=== PATIENT | female | born 1985 | race Caucasian/White ===

== ENCOUNTER 2017-01-14 04:59 | Inpatient (IN) | payer OTHER ==
[~2017-01-14] VITALS: Ht 157.5 cm; Wt 87.1 kg
[2017-01-14 05:15] VITALS: BP 115/67
--- NOTE | 2017-01-14 05:20 | NUR ---
To bed 3.
--- NOTE | 2017-01-14 05:25 | NUR ---
Patient being evaluated by physician at bedside.
[2017-01-14] MEDS ORDERED: NACL 0.9% 1,000 ML IV ONE (05:35)
[2017-01-14] MEDS ORDERED: ACETYLCYSTEINE 20% (200 MG/ML) 200 MG/ML VIAL PO ONE (05:45)
--- NOTE | 2017-01-14 05:45 | NUR ---
32Y/F PT. BIB MOTHER TO ED WITH POSSIBLE OVERDOSE. MOTHER STATES PT. TOLD HER SHE TOOK COUPLE OF FULL HAND OF ACETAMENOPHEN 500 MG. HX. ADHD, MENTAL DELAYED. AAO, AMBULATORY WITH STEADY GAIT. RESPIRATIONS ROOM AIR, EVEN AND UNLABORED. BL LUNGS CLEAR. SKIN ARM AND DRY. VSS, NO S/SX OF DISTRESS AT THIS TIME. ER MD MADE AWARE OF PT. STAUS.
[2017-01-14 05:58] LABS: BASOPHILS # (AUTO) 0.4 K/uL (0.00-0.22); BASOPHILS % (AUTO) 4.1 % (0.0-2.0); EOSINOPHILS # (AUTO) 0.6 K/uL (0-0.4); EOSINOPHILS % (AUTO) 5.9 % (0.0-4.0); HEMATOCRIT 40.5 % (36-48); HEMOGLOBIN 13.1 g/dL (12.0-16.0); LYMPHOCYTES # (AUTO) 3.9 K/uL (2.5-16.5); LYMPHOCYTES % (AUTO) 37.8 % (20.5-51.1); MEAN CORPUSCULAR HEMOGLOBIN 27 pg (27-31); MEAN CORPUSCULAR HGB CONC 32 g/dL (33-37); MEAN CORPUSCULAR VOLUME 82 fL (80-94); MONOCYTES # (AUTO) 0.4 K/uL (0.8-1.0); MONOCYTES % (AUTO) 3.4 % (1.7-9.3); NEUTROPHILS # (AUTO) 5.1 K/uL (1.8-7.7); NEUTROPHILS % (AUTO) 48.8 % (42.2-75.2); PLATELET COUNT (AUTO) 239 K/uL (140-450); RED BLOOD CELL COUNT(AUTO) 4.93 MIL/uL (4.20-5.40); RED CELL DISTRIBUTION WIDTH 13.8 % (11.6-13.7); WHITE BLOOD COUNT (AUTO) 10.4 K/uL (4.8-10.8)
--- NOTE | 2017-01-14 05:58 | NUR ---
[place] [employer] AT BEDSIDE TO EVALUATE PT
[2017-01-14 06:07] LABS: ANION GAP 17.6 (8-16); CARBON DIOXIDE 22.7 mmol/L (21-32); CHLORIDE 104 mmol/L (98-107); CREATININE 0.9 mg/dL (0.6-1.3); GFR ARICAN-AMERICAN 92 mL/min (>90); GLUCOSE 128 mg/dL (74-106); POTASSIUM 4.3 mmol/L (3.5-5.1); SODIUM SERUM 140 mmol/L (136-145); UREA NITROGEN, BLOOD 10 mg/dL (7-18)
--- NOTE | 2017-01-14 06:10 | NUR ---
PD PLACE PT. ON 4907 HOLD
[2017-01-14 06:21] LABS: ALBUMIN 3.4 g/dL (3.4-5.0); ASPARTATE AMINOTRANSFERASE 22 U/L (15-37); TOTAL BILIRUBIN 0.4 mg/dL (0.0-1.0)
[2017-01-14 06:22] LABS: SALICYLATE < 2.8 mg/dL (2.8-20.0)
[2017-01-14 06:24] LABS: ACETAMINOPHEN 233.5 ug/ml (10-30)
[2017-01-14] MEDS ORDERED: ONDANSETRON 4 MG/2 ML VIAL IVP PRN (06:40)
[2017-01-14] MEDS ORDERED: METF1000 PO (06:47)
[2017-01-14] MEDS ORDERED: SERT25TA PO (06:47)
[2017-01-14] MEDS ORDERED: CLON0.1T42 PO (06:47)
[2017-01-14] MEDS ORDERED: TRAZ-286 PO (06:47)
[2017-01-14] MEDS ORDERED: birth control (06:47)
[2017-01-14] MEDS ORDERED: BUPR-10 PO (06:47)
[2017-01-14] MEDS ORDERED: BRE5 PO (06:47)
[2017-01-14] MEDS ORDERED: MONT10TA35 PO (06:47)
[2017-01-14 06:49] LABS: APPEARANCE,URINE CLEAR (CLEAR); BILIRUBIN,URINE 1+ (NEGATIVE); BLOOD, URINE NEGATIVE (NEGATIVE); COLOR,URINE YELLOW (YELLOW); LEUKOCYTE ESTERASE ,URINE NEGATIVE (NEGATIVE); NITRITE, URINE NEGATIVE (NEGATIVE); UGLUCOSE NEGATIVE (NEGATIVE)
[2017-01-14 06:53] LABS: BARBITURATE, URINE NEG. ng/ml (NEG <=200); BENZODIAZEPINE, URINE POS. ng/mL (NEG <=200); CANNABINOID, URINE NEG. ng/mL (NEG <=50); COCAINE, URINE NEG. ng/mL (NEG <=300); OPIATE, URINE NEG. ng/mL (NEG <=2000); PHENCYCLIDINE SCREEN,URINE NEG. ng/mL (NEG <=25)
--- NOTE | 2017-01-14 07:06 | NUR ---
GIVE REPORT TO BREANA SORIA. PT. RESTING IN BED, MOTHER AT BEDSIDE.
[2017-01-14 07:08] LABS: PROTHROMBIN TIME 9.6 secs (10.8-13.4)
--- NOTE | 2017-01-14 07:08 | NUR ---
Patient appears to be resting comfortably in bed. Vital Signs within normal limits. Respirations even and unlabored. Mother of patient by bedside. Updated pt on plan of care. Pt verbalized understanding
[2017-01-14 07:14] LABS: RBC,URINE 0-5 (RARE) /HPF (0-5); WBC,URINE 0-5 (RARE) /HPF (0-5)
--- NOTE | 2017-01-14 07:22 | NUR ---
Attemped to call to give report. ASSOCIATE PROFESSOR OF ANTHROPOLOGY asked to call back in 10 mins. Will follow up.
--- NOTE | 2017-01-14 07:40 | NUR ---
Patient will be admitted to care of Mike BRAND. Admited to Tele (RM ICU 5 for overflow). Will go to room ICU #5. Belongings list completed. Report to Marika.
--- NOTE | 2017-01-14 07:40 | NUR ---
RECEIVED REPORT FROM BREANA IQBAL FROM ER. AWAITING ARRIVAL TO THE UNIT.
--- NOTE | 2017-01-14 07:50 | NUR ---
PT ARRIVED TO THE UNIT VIA GURNEY. NO S/SX OF DISTRESS AT THIS TIME. DENIES PAIN OR DISCOMFORT. PT ON ROOM AIR. ALERT AND ORIENT X4. PERIPHERAL IV ON RIGHT AC #20. SKIN INTACT. SAFETY PRECAUTION IN PLACE. BED IN LOWEST POSITION AND BOTH S/R UP. CALL LIGHT WITHIN REACH. PT SINUS RHYTHM ON THE MONITOR. ADMISSION ASSESSMENT COMPLETED AND MRSA SWAB OBTAINED. WILL CONTINUE TO MONITOR.
[2017-01-14 07:59] LABS: CHOL/HDL RATIO 4.4 (1-4.5); FREE T4 (FREE THYROXINE) 0.99 ng/dL (0.76-1.46); MAGNESIUM 1.9 mg/dL (1.8-2.4); PHOSPHORUS 4.4 mg/dL (2.5-4.9); THYROID STIMULATING HORMONE 3.5 uIU/mL (0.34-3.74)
[2017-01-14 08:00] VITALS: BP 110/74
--- NOTE | 2017-01-14 08:00 | NUR ---
ABG DRAWN ON LR WITHOUT INCIDENT ON ROOM AIR AND AT [address] MONREAL WITH NO CHANGES MADE
--- NOTE | 2017-01-14 08:11 | NUR ---
DR. SANTIZO'S GROUP IN TO SEE PT. WILL FOLLOW UP ON ORDERS. MOTHER PRESENT AT BED SIDE
[2017-01-14] MEDS: NACL 0.9% 1,000 ML IV SCH ×3 (08:30→23:25)
--- NOTE | 2017-01-14 08:45 | NUR ---
PT WAS ASSISTED TO BED SIDE COMMODE AND HAD 2 LARGE BOWEL MOVEMENT, SOFT AND BROWN IN COLOR. HYGIENE CARE PROVIDED.
[2017-01-14] MEDS ORDERED: MAG SULF 2000 MG/WATER PREMIX 50 ML IV ONE (09:10)
[2017-01-14] MEDS ORDERED: ATORVASTATIN 20 MG TAB PO SCH (09:30)
[2017-01-14] MEDS: PANTOPRAZOLE 40 MG INJ VIAL IVP SCH (09:52)
[2017-01-14] MEDS: DOCUSATE SODIUM 100 MG GELCAP PO SCH ×2 (09:54→20:47)
--- NOTE | 2017-01-14 10:00 | NUR ---
DR. MONREAL AT BED SIDE AT THIS TIME. Addendum: 01/14/17 at 1013 by Marika Villanueva RN WILL FOLLOW ANY ORDERS
[2017-01-14] MEDS: ACETYLCYSTEINE 20% (200 MG/ML) 200 MG/ML VIAL PO SCH ×4 (10:06→22:18)
--- NOTE | 2017-01-14 10:15 | NUR ---
DR. MARIA FAXED WITH PT'S FACE SHEET
[2017-01-14] MEDS ORDERED: DEXTROSE 50% 50 ML SYR IVP PRN (10:25)
[2017-01-14] MEDS ORDERED: INSULIN LISPRO SLIDING SCALE 100 UNITS/ML VIAL SUBQ PRN (10:25)
[2017-01-14] MEDS ORDERED: ACETYLCYSTEINE 20% (200 MG/ML) 200 MG/ML VIAL PO SCH (10:30)
--- NOTE | 2017-01-14 10:30 | NUR ---
PT WAS ASSISTED TO BED SIDE COMMODE AND HAD A LARGE SOFT BROWN STOOL WITH URINE. PT DENIED ANY PAIN OR DISCOMFORT AT THIS TIME.
--- NOTE | 2017-01-14 11:20 | NUR ---
JADYN FROM [facility] CALLED FOR PT'S CONDITION.
[2017-01-14] MEDS ORDERED: SERTRALINE 50 MG TAB PO SCH (11:30)
[2017-01-14] MEDS ORDERED: ALBUTEROL SULFATE/IPRATROPIU 3 ML SOL IH PRN (11:50)
[2017-01-14] MEDS: BLOOD GLUCOSE MONITORING 1 DEV DEV FS SCH ×3 (11:58→20:47)
[2017-01-14 12:00] VITALS: BP 121/71
[2017-01-14] MEDS: ALBUTEROL SULFATE/IPRATROPIU 3 ML SOL IH SCH ×2 (12:00→19:14)
--- NOTE | 2017-01-14 12:40 | NUR ---
PT REFUSED BREATHING TX NO SIGNS OF DISTRESS NOTED AND BREANA HOPE NOTIFIED
--- NOTE | 2017-01-14 13:00 | NUR ---
PATIENT WAS EDUCATED ON INCENTIVE SPIROMETER. PT TOLERATING WELL.
--- NOTE | 2017-01-14 13:30 | NUR ---
PT'S BROTHER, ISI PRESENT AT BED SIDE. PT ALERT AND AWAKE.
--- NOTE | 2017-01-14 14:00 | NUR ---
PT WAS ASSISTED TO THE BED SIDE COMMODE AND HAD A SMALL SOFT BROWN BOWEL MOVEMENT AND URINE X1. PT WAS ASSISTED BACK TO BED SAFELY. DENIES ANY PAIN OR DISCOMFORT.
--- NOTE | 2017-01-14 14:47 | NUR ---
SPO[place] WITH RUMA BRUSH [place] [facility] [phone] PROVIDED HER WITH VERBAL CLINICAL REVIEW REGARDING PT ADMITTED WITH DX OF TYLENOL OVERDOSE AND PT WITH TYLENOL LEVEL OF 233.5 AND CURRENTLY IN ICU. WILL FAX REVIEW TOMORROW.
--- NOTE | 2017-01-14 15:30 | NUR ---
PT WAS ASSISTED TO BED SIDE COMMODE AND HAD URINE X1. ASSISTED BACK TO BED SAFELY. DENIES ANY PAIN OR DISCOMFORT AND NO ACUTE DISTRESS NOTED.
--- NOTE | 2017-01-14 15:55 | NUR ---
PT'S MOTHER IS AT BED SIDE AT THIS TIME.
[2017-01-14 16:00] VITALS: BP 140/81
--- NOTE | 2017-01-14 17:00 | NUR ---
PT WAS ASSISTED TO BED SIDE COMMODE AND HAS URINE X1. ASSISTED PT BACK TO BED SAFELY AND SAFETY PRECAUTIONS CARRIED OUT. BED TO THE LOWEST POSITION WITH BOTH S/R UP. CALL LIGHT IN REACH. PATIENT DENIES PAIN OR DISCOMFORT. NO ACUTE DISTRESS NOTED. PT MOTHER AT BED SIDE AT THIS TIME.
[2017-01-14] MEDS: cloNIDine 0.1 MG TAB PO SCH (17:49)
--- NOTE | 2017-01-14 18:00 | NUR ---
EDUCATIONS WERE PROVIDED TO JATINDER TRINIDAD, MOTHER AND THE PATIENT REGARDING SUICIDAL FEELINGS; HOW TO HELP YOURSELF, ASTHMA, TYPE 2 DIABETES MELLITUS, STRESS AND STRESS MANAGEMENT. COPIES OF EDUCATION MATERIALS WERE PROVIDED. RECEPTIVE TO EDUCATION.
--- NOTE | 2017-01-14 18:49 | NUR ---
DR. MELO IN TO SEE PT FOR PSYCH EVAL.
--- NOTE | 2017-01-14 19:17 | NUR ---
ENDORSED CARE TO BREANA OROZCO. PT IN STABLE CONDITION.
--- NOTE | 2017-01-14 19:20 | NUR ---
RECEIVED REPORT FROM BREANA DURAN. INITIAL ASSESSMENT COMPLETED. PATIENT IS AWAKE, ALERT, ORIENTED X 4, COOPERATIVE. ATTACHED TO NON LINEAR EDITOR. PULSE OXIMETER. PT HAS BEEN CLEARED FROM [address] ROMERO. CHARGE NURSE AWARE. IV ACCESS AT RIGHT AC 20G, PATENT INTACT AT THIS TIME. SCDS IN PLACE, NO SIGNS OF DISTRESS, DENIES ANY SUICIDAL THOUGHTS AT THIS TIME. ABLE TO VOID FREELY, MOVE ALL EXTREMITIES. BED IN LOW POSITION, SAFETY MEASURE ENSURE, CALL LIGHT WITHIN REACH. WILL CONTINUE TO MONITOR.
[2017-01-14 20:00] VITALS: BP 119/72
[2017-01-14] MEDS: traZODone 50 MG TAB PO SCH (20:47)
[2017-01-14] MEDS: MONTELUKAST SODIUM 10 MG TAB PO SCH (20:47)
[2017-01-14 21:35] LABS: ASPARTATE AMINOTRANSFERASE 19 U/L (15-37); BILIRUBIN,DIRECT 0.1 mg/dL (0.0-0.3); TOTAL BILIRUBIN 0.4 mg/dL (0.0-1.0)
[2017-01-14 21:49] LABS: ACETAMINOPHEN < 0.5 ug/ml (10-30)
--- NOTE | 2017-01-14 22:32 | NUR ---
PT AWAKE, WATCHING TV. CALM AND COOPERATIVE. WILL CONTINUE TO MONITOR.
--- NOTE | 2017-01-14 23:29 | NUR ---
SNACK PROVIDED TO PT. NO SIGNS OF DISTRESS AT THIS TIME.
[2017-01-15] VITALS: BP 122/79
--- NOTE | 2017-01-15 02:18 | NUR ---
PT RESTING COMFORTABLY ON BED. WILL CONTINUE TO MONITOR.
[2017-01-15] MEDS ORDERED: ACETYLCYSTEINE 20% (200 MG/ML) 200 MG/ML VIAL PO SCH (02:30)
[2017-01-15 04:00] VITALS: BP 115/63
--- NOTE | 2017-01-15 04:11 | NUR ---
MORNING CARE DONE. PT TOLERATED WELL.
[2017-01-15 05:00] LABS: BASOPHILS # (AUTO) 0.4 K/uL (0.00-0.22); BASOPHILS % (AUTO) 3.9 % (0.0-2.0); EOSINOPHILS # (AUTO) 0.4 K/uL (0-0.4); EOSINOPHILS % (AUTO) 3.5 % (0.0-4.0); HEMATOCRIT 38.9 % (36-48); HEMOGLOBIN 12.8 g/dL (12.0-16.0); LYMPHOCYTES # (AUTO) 3.4 K/uL (2.5-16.5); LYMPHOCYTES % (AUTO) 31.9 % (20.5-51.1); MEAN CORPUSCULAR HEMOGLOBIN 27 pg (27-31); MEAN CORPUSCULAR HGB CONC 33 g/dL (33-37); MEAN CORPUSCULAR VOLUME 83 fL (80-94); MONOCYTES # (AUTO) 0.4 K/uL (0.8-1.0); MONOCYTES % (AUTO) 3.8 % (1.7-9.3); NEUTROPHILS # (AUTO) 6.2 K/uL (1.8-7.7); NEUTROPHILS % (AUTO) 56.9 % (42.2-75.2); PLATELET COUNT (AUTO) 227 K/uL (140-450); RED BLOOD CELL COUNT(AUTO) 4.71 MIL/uL (4.20-5.40); RED CELL DISTRIBUTION WIDTH 13.9 % (11.6-13.7); WHITE BLOOD COUNT (AUTO) 10.8 K/uL (4.8-10.8)
--- NOTE | 2017-01-15 05:25 | NUR ---
PT TRANSFERRED TO THE FLOOR. MOTHER NOTIFIED OF PT'S TRANSFER AND ROOM NUMBER. PT TOLERATED WELL, NO SIGNS OF DISTRESS. WILL CONTINUE TO MONITOR.
[2017-01-15 06:08] LABS: ANION GAP 14.3 (8-16); CARBON DIOXIDE 23.2 mmol/L (21-32); CREATININE 0.9 mg/dL (0.6-1.3); POTASSIUM 4.5 mmol/L (3.5-5.1)
[2017-01-15 06:14] LABS: PHOSPHORUS 3.2 mg/dL (2.5-4.9)
[2017-01-15] MEDS: ALBUTEROL SULFATE/IPRATROPIU 3 ML SOL IH SCH ×4 (06:22→23:45)
[2017-01-15] MEDS: BLOOD GLUCOSE MONITORING 1 DEV DEV FS SCH ×4 (06:30→21:53)
--- NOTE | 2017-01-15 07:19 | NUR ---
REPORT GIVEN TO BREANA METZ FOR CONTINUITY OF CARE. DR. KOENIG IN THE UNIT, UPDATED OF PT'S CONDITION.
--- NOTE | 2017-01-15 07:20 | NUR ---
RECEIVED BEDSIDE REPORT FROM HYDROELECTRIC PLANT ELECTRICIAN RN. PT AWAKE AND ALERT, NO SIGNS OF ACUTE DISTRESS. BOWEL SOUNDS ACTIVE IN ALL 4 QUADRANTS, BOWEL AND BLADDER CONTINENCE. PT ON ROOM AIR. SKIN INTACT. AMBULATORY WITH BRP. IV PATENT AND ASYMPTOMATIC. RE-ORIENTED TO HOSPITAL AND TO UNIT, PT VERBALIZES UNDERSTANDING. BED IN LOW POSITION WITH BILATERAL HALF SIDE RAILS UP, CALL LIGHT WITHIN REACH. DR KOENIG AT PATIENT BEDSIDE. WILL CONTINUE TO MONITOR.
[2017-01-15 08:00] VITALS: BP 125/73
--- NOTE | 2017-01-15 08:05 | NUR ---
PATIENT HAS BEEN SCREENED AND CATEGORIZED MODERATE NUTRITION RISK. PATIENT WILL BE SEEN WITHIN 3-5 DAYS OF ADMISSION. 01/16/17-01/18/[address]
[2017-01-15] MEDS ORDERED: TERBUTALINE 5 MG PO SCH (09:00)
[2017-01-15] MEDS: DOCUSATE SODIUM 100 MG GELCAP PO SCH ×2 (09:00→21:42)
[2017-01-15] MEDS ORDERED: ATORVASTATIN 20 MG TAB PO SCH (09:00)
[2017-01-15 09:34] LABS: PROTHROMBIN TIME 10.8 secs (10.8-13.4)
[2017-01-15 09:42] LABS: ALBUMIN 3.1 g/dL (3.4-5.0); ASPARTATE AMINOTRANSFERASE 19 U/L (15-37); BILIRUBIN,DIRECT 0.1 mg/dL (0.0-0.3); TOTAL BILIRUBIN 0.4 mg/dL (0.0-1.0)
[2017-01-15 09:44] LABS: ACETAMINOPHEN < 0.5 ug/ml (10-30)
[2017-01-15] MEDS: PANTOPRAZOLE 40 MG INJ VIAL IVP SCH (09:46)
[2017-01-15] MEDS: SERTRALINE 50 MG TAB PO SCH (09:46)
[2017-01-15] MEDS: NACL 0.9% 1,000 ML IV SCH (09:46)
--- NOTE | 2017-01-15 10:52 | NUR ---
HUMZA LARSEN SPOKE WITH HUMZA HENDRIX OF [facility] AND INFORMED HER REGARDING ORDER FOR REFERRALS TO FAMILY THERAPISTS. PER RUMA, CONTACT [facility]. SPOKE WITH BHUPINDER Sanon OF [facility] [phone]. PER BHUPINDER, THERE IS A $25 CO-PAY PER VISIT, NO DEDUCTIBLE, NO AUTHORIZATION NEEDED. JUST NEED TO FIND SOMEONE IN THEIR CONTRACTED LIST AND GO THERE. THEIR LIST OF CONTRACTED PEOPLE/CLINICS CAN BE FOUND IN THEIR WEBSITE: [email or web address], ACCESS CODE: [employer]. COARSE WIRE DRAWER SAL AWARE. Addendum: 01/15/17 at 1626 by Sal Abad SS I SPOKE WITH PT BEDSIDE AND PROVIDED HER WITH THE ABOVE WRITTEN INFORMATION REGARDING INSURANCE CONTRACTED FAMILY THERAPISTS. I ALSO CALLED PT'S MOM, JATINDER TO MAKE HER AWARE OF THIS WELL. SHE STATED THAT SHE WILL COME BY LATER TO SEE PT AND TO LOOK OVER THE INFORMATION.
--- NOTE | 2017-01-15 11:54 | NUR ---
CM NOTE REVIEW FAXED TO [facility] [phone] PH RUMA Queen [phone]
--- NOTE | 2017-01-15 13:45 | NUR ---
SPOKE WITH KALA FROM [facility]. PATIENT IS CLEARED FROM A TOXIC STAND POINT.
--- NOTE | 2017-01-15 14:00 | NUR ---
PT AWAKE AND ALERT, NO SIGNS OF ACUTE DISTRESS. ENDORSED TO PAVEL RN, FOR CONTINUITY OF CARE.
--- NOTE | 2017-01-15 14:00 | NUR ---
RECEIVED REPORT FROM LASHAY. PT AAO, RESTING COMFORTABLY. NO S/S OF SHORTNESS OF BREATH, RESTLESSNESS, OR DISTRESS. PT DENIES PAIN OR DISCOMFORT. RESP EVEN AND UNLABORED. DISCUSSED PLAN OF CARE WITH PT. PT VERBALIZED UNDERSTANDING. SAFETY MEASURES IN PLACED. BED LOCKED ON LOW POSITION. CALL LIGHT WITHIN REACH. SIDE RAILS UP. WILL CONTINUE TO MONITOR.
[2017-01-15 16:00] VITALS: BP 125/73
--- NOTE | 2017-01-15 16:07 | NUR ---
FINGER STICK GLUCOSE 122 AT THIS TIME, NO INSULIN NEEDED, PT AWAKE ALERT, PLEASANTLY TALKING WITH NURSES, APPEARS IN GOOD SPIRIT, NO C/O PAIN OR DISCOMFORT, DENIES ANY IMMEDIATE NEEDS, VSS, CALL BRIGGS WITHIN REACH, SIDE RAILS UP, AMBULATES TO BATHROOM WITH STEADY GAIT, WILL CONTINUE TO MONITOR
[2017-01-15] MEDS: cloNIDine 0.1 MG TAB PO SCH (17:00)
--- NOTE | 2017-01-15 18:06 | NUR ---
UP TO BATHROOM WITH MINIMAL ASSIST, PT AMBULATES WITH STEADY GAIT, MOTHER AT BEDSIDE, PT DENIES PAIN OR DISCOMFORT, NO IMMEDIATE NEEDS IDENTIFIED, WILL CONTINUE TO MONITOR.
--- NOTE | 2017-01-15 19:37 | NUR ---
ENDORSED TO PM NURSE FOR CONTINUITY OF CARE. PT IS STABLE.
--- NOTE | 2017-01-15 19:38 | NUR ---
RECD. RESTING IN BED, AWAKE, A/OX4. RESPIRATION EVEN AND UNLABORED. IV OF NS AT 20 ML/HR INFUSING, RIGHT AC G20. STATED SHE DOES NOT HAVE A COUGH. SAFETY MEASURES ENFORCED. INSTRUCTED TO CALL NURSE IF NEEDING HELP. PLAN OF CARE FOR THE SHIFT DISCUSSED. VERBALIZED UNDERSTANDING. DENIES PAIN . Addendum: 01/15/17 at 2209 by Todd Ward LVN CORRECTION: THIS NOTES IS ENTERED BY BOYD (TODD WARD LVN)
[2017-01-15] MEDS: traZODone 50 MG TAB PO SCH (21:41)
[2017-01-15] MEDS: MONTELUKAST SODIUM 10 MG TAB PO SCH (21:41)
--- NOTE | 2017-01-15 21:42 | NUR ---
DUE PO MEDICATIONS GIVEN, TOLERATED WELL. REFUSED SNACK OF CRACKERS AND MILK. SANDWICH GIVEN REQUESTED.
--- NOTE | 2017-01-15 22:00 | NUR ---
Patient's Plan of Care was discussed and reviewed with VASCULAR ULTRASOUND TECHNICIAN: TODD WARD
--- NOTE | 2017-01-15 22:30 | NUR ---
CONVERSING WITH MOTHER IN THE PHONE.
[2017-01-16] VITALS: BP 105/63
--- NOTE | 2017-01-16 | NUR ---
STILL AWAKE, WANTS TO WATCH TV.
[2017-01-16 06:16] LABS: BASOPHILS # (AUTO) 0.1 K/uL (0.00-0.22); BASOPHILS % (AUTO) 0.9 % (0.0-2.0); EOSINOPHILS # (AUTO) 0.4 K/uL (0-0.4); EOSINOPHILS % (AUTO) 4.5 % (0.0-4.0); HEMATOCRIT 42.3 % (36-48); HEMOGLOBIN 13.8 g/dL (12.0-16.0); LYMPHOCYTES # (AUTO) 2.5 K/uL (2.5-16.5); LYMPHOCYTES % (AUTO) 28.1 % (20.5-51.1); MEAN CORPUSCULAR HEMOGLOBIN 27 pg (27-31); MEAN CORPUSCULAR HGB CONC 33 g/dL (33-37); MEAN CORPUSCULAR VOLUME 83 fL (80-94); MONOCYTES # (AUTO) 0.5 K/uL (0.8-1.0); MONOCYTES % (AUTO) 5.7 % (1.7-9.3); NEUTROPHILS # (AUTO) 5.5 K/uL (1.8-7.7); NEUTROPHILS % (AUTO) 60.8 % (42.2-75.2); PLATELET COUNT (AUTO) 230 K/uL (140-450); RED CELL DISTRIBUTION WIDTH 13.8 % (11.6-13.7)
[2017-01-16] MEDS: BLOOD GLUCOSE MONITORING 1 DEV DEV FS SCH ×2 (06:35→11:30)
[2017-01-16 07:24] LABS: ANION GAP 15.8 (8-16); CARBON DIOXIDE 23.2 mmol/L (21-32); CREATININE 0.9 mg/dL (0.6-1.3)
--- NOTE | 2017-01-16 07:30 | NUR ---
RECEIVED REPORT FROM PM RN. PT SLEEPING AROUSES EASILY. RESP EVEN AND UNLABORED. PT DENIES PAIN OR DISCOMFORT. NO S/S OF DISTRESS, SHORTNESS OF BREATH, OR RESTLESSNESS. SKIN IS INTACT, WARM AND DRY. IV INTACT INFUSING AT 100 ML/HR, NO SIGN OF SWELLING OR REDNESS. DISCUSSED PLAN OF CARE, PT VERBALIZED UNDERSTANDING. SAFETY MEASURES IN PLACED. BED LOCKED ON LOW POSITION. CALL LIGHT WITHIN REACH. WILL CONTINUE TO MONITOR
--- NOTE | 2017-01-16 07:47 | NUR ---
AWAKE AND ALERT RESPONSIVE TO POLITICAL GEOGRAPHER NO SOB NOTED PATIENT WITH BREAKFAT TRAY AT THIS TIME POLITICAL GEOGRAPHER TO ATTEMPT HHN THERAPY AT A LATER TIME
[2017-01-16 08:00] VITALS: BP 111/72
[2017-01-16] MEDS: DOCUSATE SODIUM 100 MG GELCAP PO SCH (08:56)
[2017-01-16] MEDS: PANTOPRAZOLE 40 MG INJ VIAL IVP SCH (08:56)
[2017-01-16] MEDS: SERTRALINE 50 MG TAB PO SCH (08:56)
--- NOTE | 2017-01-16 09:05 | NUR ---
ADMINISTERED AM MEDS. PT TOLERATED WELL. NO SIGNS OF SOB, RESTLESSNESS OR DISTRESS. PT DENIES PAIN OF DISCOMFORT. RT AT BEDSIDE. SAFETY MEASURES IN PLACED. BED LOCKED ON LOW POSITION, SIDE RAILS UP, CALL LIGHT WITHIN REACH. WILL CONTINUE TO MONITOR.
[2017-01-16] MEDS: NACL 0.9% 1,000 ML IV SCH (09:07)
--- NOTE | 2017-01-16 09:23 | NUR ---
CM NOTE CONCURRENT REVIEW FAXED TO [facility] [phone] PH RUMA Queen PH [phone]
[2017-01-16] MEDS: ALBUTEROL SULFATE/IPRATROPIU 3 ML SOL IH SCH (12:00)
--- NOTE | 2017-01-16 12:27 | NUR ---
DISCHARGED INSTRUCTIONS AND EDUCATION GIVEN TO PT AND PT'S MOTHER. VERBALIZED UNDERSTANDING. DENIES PAIN OR DISCOMFORT. NO SIGNS OF DISTRESS, SHORTNESS OF BREATH AND RESTLESSNESS. DC'ED IV, NO BLEEDING, REDNESS, AND OR SWELLING NOTED. ARMBAND REMOVED. VSS. PT AND PT'S FAMILY MEMBER TO BE DISCHARGED. Addendum: 01/16/17 at 1235 by Annie Duncan RN PT DENIES SI/HI. PT SMILING, HAPPY, AND VERBALIZED DESIRES TO GO HOME. APPEARS IN GOOD SPIRIT.
[2017-01-16 12:31] VITALS: BP 127/68
--- NOTE | 2017-01-16 12:39 | NUR ---
AWAKE AND ALERT NO PULMONARY DISTRESS NOTED REFUSED HHN THERAPY DISCHARGE PROCESS
--- NOTE | 2017-01-16 12:53 | NUR ---
WHEELED PT BY PAVEL WITH MOTHER AND PT'S FRIEND Addendum: 01/16/17 at 1254 by Annie Duncan RN PT STABLE.
== END 2017-01-16 12:45 | disposition home or self-care (01) | DRG 917 ==
LOC: MED 04:59 → MIC 06:43 → MTU 06:43
PROVIDERS: ADMIT Student in an Organized Health Care Education/Training Program; ATTEND Student in an Organized Health Care Education/Training Program
DX: T39.1X2A Poisoning by 4-Aminophenol derivatives, intentional self-harm, initial encounter (principal); G93.40 Encephalopathy, unspecified; N17.0 Acute kidney failure with tubular necrosis; E44.0 Moderate protein-calorie malnutrition; D68.59 Other primary thrombophilia; E87.2 Acidosis; F33.1 Major depressive disorder, recurrent, moderate; E87.8 Other disorders of electrolyte and fluid balance, not elsewhere classified; T49.8X2A Poisoning by other topical agents, intentional self-harm, initial encounter; E11.9 Type 2 diabetes mellitus without complications; G93.2 Benign intracranial hypertension; G47.00 Insomnia, unspecified; E78.5 Hyperlipidemia, unspecified; E66.9 Obesity, unspecified; F90.9 Attention-deficit hyperactivity disorder, unspecified type; J45.909 Unspecified asthma, uncomplicated; F79 Unspecified intellectual disabilities; Z79.4 Long term (current) use of insulin; Y92.89 Other specified places as the place of occurrence of the external cause; Z91.5 Personal history of self-harm; Z68.32 Body mass index [BMI] 32.0-32.9, adult
CPT/HCPCS: 36415; 36600; 71010; 80048; 80053; 80076; 80305; 81001; 81025; 82140; 82150; 82248; 82550; 82803; 82948; 83036; 83605; 83690; 83735; 83880; 84100; 84439; 84443; 84484; 85025; 85610; 85730; 87081; 93005; 93925; 93970; 94640; 96360; 96361; 99285; C9113; G0480; G0482; J1815; J7030; J7608; J7620; Q0092